=== PATIENT | male | born 1990 | race Caucasian/White ===

== ENCOUNTER 2019-05-17 17:09 | Outpatient (CLI) | payer BC, SELFPAY ==
--- NOTE | ~2019-05-17 | US_ITS ---
EXAMINATION: US abdomen limited EXAM DATE: 05/17/2019 17:49 INDICATION: Elevated liver enzymes. TECHNIQUE: Multiple grayscale and Doppler images of the abdomen right upper quadrant were obtained (b y a technologist who performed the scan) and subsequently reviewed. There is no prior study for mansoor caldwell. FINDINGS: The pancreatic head and body are normal in appearance. The pancreatic tail is not visualized. Mildl y echogenic liver parenchyma, hepatic steatosis. There are no focal liver lesions identified. Ther e is no evidence of intrahepatic biliary duct dilation. Portal venous flow was seen in the hepatoped al, normal direction and has normal Doppler waveform. No right-sided hydronephrosis. Common bile duct measures 3 mm, which is normal. The gallbladder wall is normal in thickness, with ex pected amount of distention. No sonographic evidence of pericholecystic fluid. There is no cholelit hiases. Technologist performing exam reports patient did not demonstrate sonographic Hensley's sign. Please note that this sign is less reliable in patients who have received pain medication. IMPRESSION: 1. Hepatic steatosis. Reviewed, dictated and finalized at location A. M TECHNICIAN IMPRESSION: 1. Hepatic steatosis.
== END 2019-05-17 17:10 ==
LOC: MICIMG 17:09
PROVIDERS: PCP Family Medicine; Visit Provider Physician Assistant
DX: K76.0 Fatty (change of) liver, not elsewhere classified (principal)
CPT/HCPCS: 76705

== ENCOUNTER 2019-06-29 13:41 | Emergency (ER) | payer BC, SELFPAY ==
--- NOTE | ~2019-06-29 | XR_ITS ---
EXAMINATION: XR ankle RT min 3V INDICATION: Right ankle swelling TECHNIQUE: Four views of the right ankle are obtained. COMPARISON: Foot radiograph dated 12/01/2016 FINDINGS: There is soft tissue swelling of the ankle near the lateral malleolus. Bone alignment is no rmal. There is no acute fracture. An os subfibulare is noted. Mild irregularity at the distal aspect of the medial malleolus has the appearance of prior injury. IMPRESSION: 1. Ankle soft tissue swelling without acute osseous findings. Reviewed, dictated and finalized at location A.
[2019-06-29 14:08] VITALS: BP 144/85; PULSE 80; RESP 16; TEMP 36.8; O2SAT 99
--- NOTE | 2019-06-29 14:19 | ED.LOWEXIN ---
HPI - Extremity Injury (Lower) General Chief Complaint: Extremity Injury, Lower Stated Complaint: Injury Time Seen by Provider: 06/29/19 14:19 Source: patient Mode of arrival: ambulatory Limitations: no limitations History of Present Illness HPI Narrative: Jericho Bartlett is a 29 yo male with no PMH who comes to express care after twisting R ankle after falling in hole a few hours ago. Related Data Home Medications Medication Instructions Recorded Confirmed L. gasseri-B. bifidum-B longum 1.5 1 cap PO DAILY cap 02/16/19 05/20/19 billion cell capsule cetirizine 10 mg tablet 10 mg PO DAILY 02/16/19 05/20/19 uawukneb-rxnamsnt-xpfyp acid 400 1 tablet PO DAILY tablet 02/16/19 05/20/19 mcg-vit K 20 mcg-lycop 300 mcg tablet famotidine 20 mg tablet 40 mg PO DAILY tablet 04/11/19 05/20/19 Allergies Allergy/AdvReac Type Severity Reaction Status Date / Time SEASONAL ALLERGIES Allergy Mild seasonal Uncoded 05/20/19 10:28 Review of Systems Review of Systems: Narrative: CONSTITUTIONAL: Denies fever, chills, sweats. EYES: Denies visual changes, redness, discharge. ENT: Denies rhinorrhea, congestion, sore throat, otalgia. CARDIOVASCULAR: Denies chest pain, palpitations, edema. RESPIRATORY: Denies dyspnea, wheezing, cough GASTROINTESTINAL: Denies abdominal pain, nausea, vomiting, diarrhea. GENITOURINARY: Denies dysuria, hematuria, abnormal discharge SKIN: Denies rash or itching. NEUROLOGIC: Denies numbness, or focal weakness. PSYCHIATRIC: Denies anxiety or depression. R ankle - lateral- pain with swelling PMFSH Past Medical History Medical History Atypical chest pain Depression Elevated BP without diagnosis of hypertension Family History Family History Father Hypertension Mother Hypertension Family history of malignant neoplasm of breast in first degree relative Social History Social History Smoking status: Never smoker Alcohol intake: current Drinks per week: 1 Substance use: current Substance use type: marijuana Gender identity (if verbalized by the patient): Male Comments At time of signature, I agree with nursing past medical, surgical, social and family history. There is no relevant family history pertinent to the presenting complaint. Patient states he has had hypertension in the past but his doctor is not treating him currently for this. Does however take an antidepressant for depression currently Exam Narrative: Exam Narrative: GENERAL: This is a well-nourished, well-developed patient, in moderate distress. HEAD: normocephalic, atraumatic. EYES: PERRL. Sclera clear/white. Vision is grossly intact. EARS: External ears normal, auditory canals clear and without drainage, TMs normal without perforation. Hearing grossly intact. NOSE: External nose normal without nasal discharge, nares without redness, no rhinorrhea. THROAT: Mucous membranes moist, posterior pharynx NECK: Neck supple, non-tender CARDIOVASCULAR: Regular rate and rhythm without murmurs, gallops, or rubs. RESPIRATORY: Clear to auscultation. Breath sounds equal bilaterally. No wheezes, rales, or rhonchi. GASTROINTESTINAL: Abdomen soft, non-tender, SKIN: warm, intact with no suspicious lesions or rash, good texture and turgor. NEURO: awake, alert, and oriented to person, place and time. There were no obvious focal neurologic abnormalities. Steady gait EXTREMITIES: Normal range of motion on L - R ankle- unable to move ankle without pain, able to move toes, swelling size of tennis ball base of lateral malleolus. Back: no deformity Course Course Emergency Course: Xray R ankle- negative for fracture, swelling at base of malleolus Vital Signs Vital signs: Vital Signs Temperature 98.2 F 06/29/19 14:08 Pulse Rate 80 06/29/19 14:08 Respiratory Rate 16 0
== END 2019-06-29 14:48 | disposition home or self-care (01) ==
PROVIDERS: Emergency Provider Nurse Practitioner; PCP Family Medicine
DX: S93.401A Sprain of unspecified ligament of right ankle, initial encounter (principal); S96.911A Strain of unspecified muscle and tendon at ankle and foot level, right foot, initial encounter; W17.2XXA Fall into hole, initial encounter; F32.9 Major depressive disorder, single episode, unspecified
CPT/HCPCS: 73610; 99213; G0463